=== PATIENT | female | born 1945 | race Caucasian/White ===

== ENCOUNTER 2017-01-23 09:05 | Outpatient (CLI) | payer MEDICARE, BC ==
[2017-01-23 09:31] LABS: #Basophils 0.1 thou/uL (0.0-0.2); #Eosinphils 0.1 thou/uL (0.0-0.7); #Lymphocytes 0.7 thou/uL (1.20-3.40); #Monocytes 0.4 thou/uL (0.11-0.59); #Neutrophils 2.3 thou/uL (1.40-6.50); %Basophils 2.7 % (0.0-1.0); %Eosinophils 1.8 % (0.0-10.0); %Lymphocytes 19.2 % (21.0-51.0); %Monocytes 11.1 % (0.0-10.0); %Neutrophils 65.2 % (42.0-75.0); Hemoglobin 14.6 g/dL (12.0-16.0); Mean Corpuscular HGB CONC 32.9 g/dL (32.0-36.0); Mean Corpuscular Hemoglobin 30.2 pg (27.0-31.0); Mean Corpuscular Volume 91.8 fl (81.0-99.0); Mean Platelet Volume 8.3 fL (7.4-10.4); Platelet Count 163 thou/uL (130-400); RBC Distribution Width 11.9 % (11.5-14.5); Red Blood Cell (RBC) Count 4.83 mill/uL (4.20-5.40); White Blood Cell (WBC) Count 3.5 thou/uL (4.8-10.8)
[2017-01-23 09:59] LABS: ALT (SGPT) 15 U/L (0-55); AST (SGOT) 23 U/L (5-34); Albumin 4.2 g/dL (3.4-4.8); Alkaline Phosphatase 103 U/L (40-150); Anion Gap 12 mmol/L (10-20); BUN (Urea Nitrogen) 9 mg/dL (9.8-20.1); Bilirubin, Direct 0.2 mg/dL (0.1-0.3); Bilirubin, Total 0.4 mg/dL (0.2-1.2); Calc. Creatinine Clearance 0 mL/min (70-130); Calcium 9.9 mg/dL (7.8-10.44); Carbon Dioxide 25 mmol/L (23-31); Cardiac Risk 2.7 (Less than 4.5); Chloride 103 mmol/L (98-107); Cholesterol 209 mg/dL (< 200 Desired); Estimated GFR-MDRD 81; Glucose 94 mg/dL (83-110); HDL Cholesterol 77 mg/dL (>60 Neg Risk); LDL Cholesterol, Calculated 114 mg/dL; Potassium 4.2 mmol/L (3.5-5.1); Protein, Total 6.9 g/dL (5.8-8.1); Sodium 136 mmol/L (136-145); Triglycerides 89 mg/dL (Less than 150)
== END 2017-01-23 09:06 | disposition home or self-care (01) ==
LOC: MADLABBHPM 09:05
PROVIDERS: ATTEND Family Medicine
DX: E87.1 Hypo-osmolality and hyponatremia (principal); I10 Essential (primary) hypertension
CPT/HCPCS: 36415; 80048; 80061; 80076; 84443; 85025

== ENCOUNTER 2017-04-24 08:33 | Outpatient (CLI) | payer MEDICARE, BC ==
[2017-04-24 09:08] LABS: %Basophils 2.3 % (0.0-1.0); %Eosinophils 2.7 % (0.0-10.0); %Lymphocytes 31.1 % (21.0-51.0); %Monocytes 13.4 % (0.0-10.0); %Neutrophils 50.5 % (42.0-75.0); Mean Corpuscular HGB CONC 32.6 g/dL (32.0-36.0); Mean Corpuscular Hemoglobin 29.7 pg (27.0-31.0); Mean Corpuscular Volume 91.3 fl (81.0-99.0); Mean Platelet Volume 7.6 fL (7.4-10.4); Platelet Count 154 thou/uL (130-400); RBC Distribution Width 11.9 % (11.5-14.5); White Blood Cell (WBC) Count 2.5 thou/uL (4.8-10.8)
[2017-04-24 09:09] LABS: ALT (SGPT) 14 U/L (8-55); AST (SGOT) 21 U/L (5-34); Alkaline Phosphatase 100 U/L (40-150); Anion Gap 12 mmol/L (10-20); BUN (Urea Nitrogen) 6 mg/dL (9.8-20.1); Bilirubin, Direct 0.2 mg/dL (0.1-0.3); Bilirubin, Total 0.5 mg/dL (0.2-1.2); Calc. Creatinine Clearance 0 mL/min (70-130); Calcium 9.9 mg/dL (7.8-10.44); Carbon Dioxide 27 mmol/L (23-31); Cardiac Risk 2.8 (Less than 4.5); Chloride 100 mmol/L (98-107); Cholesterol 210 mg/dl (< 200 Desired); Estimated GFR-MDRD 82; Glucose 91 mg/dL (83-110); HDL Cholesterol 75 mg/dL (>60 Neg Risk); LDL Cholesterol, Calculated 116 mg/dL; Potassium 4.4 mmol/L (3.5-5.1); Protein, Total 6.9 g/dL (6.0-8.3); Sodium 135 mmol/L (136-145); Triglycerides 95 mg/dL (Less than 150)
[2017-04-24 10:04] LABS: Eosinophils 2 % (0-10); Lymphocytes 25 % (21-51); Monocytes 14 % (0-10); Neutrophil 58 % (42-75)
[2017-04-24 10:05] LABS: PLT Morphology Comment Appears Adequate; RBC Morphology Normal
== END 2017-04-24 08:34 | disposition home or self-care (01) ==
LOC: MADLABBHPM 08:33
PROVIDERS: ATTEND Family Medicine
DX: L93.0 Discoid lupus erythematosus (principal); I10 Essential (primary) hypertension
CPT/HCPCS: 36415; 80048; 80061; 80076; 85025

== ENCOUNTER 2017-07-24 10:44 | Outpatient (CLI) | payer MEDICARE, BC ==
[2017-07-24 11:20] LABS: Hemoglobin 14.4 g/dL (12.0-16.0); Lymphocytes 23 % (21-51); MDiff Complete? YES; Mean Corpuscular HGB CONC 32.2 g/dL (32.0-36.0); Mean Corpuscular Hemoglobin 29.5 pg (27.0-31.0); Mean Corpuscular Volume 91.7 fl (81.0-99.0); Mean Platelet Volume 7.7 fL (7.4-10.4); Monocytes 13 % (0-10); Neutrophil 60 % (42-75); PLT Morphology Comment Appears Adequate; Platelet Count 136 thou/uL (130-400); RBC Distribution Width 11.9 % (11.5-14.5); Reactive Lymphocytes 4 % (0-10); Red Blood Cell (RBC) Count 4.88 mill/uL (4.20-5.40); White Blood Cell (WBC) Count 3.1 thou/uL (4.8-10.8)
[2017-07-24 12:19] LABS: ALT (SGPT) 22 U/L (8-55); AST (SGOT) 24 U/L (5-34); Albumin 4.2 g/dL (3.4-4.8); Alkaline Phosphatase 108 U/L (40-150); Anion Gap 11 mmol/L (10-20); BUN (Urea Nitrogen) 10 mg/dL (9.8-20.1); Bilirubin, Direct 0.3 mg/dL (0.1-0.3); Bilirubin, Total 0.6 mg/dL (0.2-1.2); Calc. Creatinine Clearance 0 mL/min (70-130); Carbon Dioxide 27 mmol/L (23-31); Cardiac Risk 2.3 (Less than 4.5); Chloride 100 mmol/L (98-107); Cholesterol 162 mg/dl (< 200 Desired); Estimated GFR-MDRD 81; Glucose 89 mg/dL (83-110); HDL Cholesterol 72 mg/dL (>60 Neg Risk); LDL Cholesterol, Calculated 79 mg/dL; Potassium 4.4 mmol/L (3.5-5.1); Protein, Total 7.2 g/dL (6.0-8.3); Sodium 134 mmol/L (136-145); Triglycerides 56 mg/dL (Less than 150)
== END 2017-07-24 10:45 | disposition home or self-care (01) ==
LOC: MADLABBHPM 10:44
PROVIDERS: ATTEND Family Medicine
DX: E78.00 Pure hypercholesterolemia, unspecified (principal); I10 Essential (primary) hypertension; E87.1 Hypo-osmolality and hyponatremia
CPT/HCPCS: 36415; 80048; 80061; 80076; 85025

== ENCOUNTER 2019-11-28 13:06 | Emergency (ER) | payer MEDICARE, BC ==
--- NOTE | 2019-11-28 14:28 | CT ---
CT head noncontrast HISTORY: Fall. Headache. COMPARISON: 12/05/2015. FINDINGS: There is no evidence of acute intracranial hemorrhage or infarct. Mild diffuse cortical atr ophy and chronic ischemic small vessel disease. There is no mass effect or shift of midline structures. Calcification in the arterial structures of the brain base. Visualized paranasal sinuses remain well aerated. IMPRESSION: Atherosclerosis. No acute intracranial abnormalities are demonstrated. Chronic-type findings are stable.
== END 2019-11-28 14:43 | disposition home or self-care (01) ==
LOC: MADERS 13:06
DX: S06.0X0A Concussion without loss of consciousness, initial encounter (principal); S16.1XXA Strain of muscle, fascia and tendon at neck level, initial encounter; I10 Essential (primary) hypertension; F17.210 Nicotine dependence, cigarettes, uncomplicated; Z79.899 Other long term (current) drug therapy; W18.09XA Striking against other object with subsequent fall, initial encounter
CPT/HCPCS: 70450

== ENCOUNTER 2021-10-24 11:26 | Emergency (ER) | payer MEDICARE, BC ==
[2021-10-24] MEDS ORDERED: Sodium Chloride 0.9% 1,000 ML ONE (12:44)
[2021-10-24 12:47] LABS: Hemoglobin 13.9 g/dL (12.0-16.0); Mean Corpuscular HGB CONC 32.3 g/dL (32.0-36.0); Mean Corpuscular Hemoglobin 28.8 pg (27.0-31.0); Mean Corpuscular Volume 89.2 fL (78.0-98.0); Mean Platelet Volume 6.3 fL (7.4-10.4); Platelet Count 227 thou/uL (130-400); RBC Distribution Width 10.7 % (11.5-14.5); Red Blood Cell (RBC) Count 4.83 mill/uL (4.20-5.40); White Blood Cell (WBC) Count 7.7 thou/uL (4.8-10.8)
[2021-10-24 12:54] LABS: MDiff Complete? YES
[2021-10-24 12:55] LABS: Base Excess-Venous 2.6 mmol/L (-2.0 to 3.0); Bicarbonate (HCO3v) 26.9 mmol/L (22.0-28.0); CO2 Tension (PvCO2) 39.6 mmHg (42.0-51.0); Calcium, Ionized 1.31 mmol/L (1.15-1.33); Chloride 92 mmol/L (98-107); Hemoglobin - Calc 15.8 g/dL (12.0-16.0); Potassium 4.3 mmol/L (3.5-5.1); Sodium 129 mmol/L (138-145); T. Carbon Dioxide 28.1 mmol/L (22.0-28.0); vO2 Saturation-calc 92.6 % (60.0-85.0)
[2021-10-24 12:57] LABS: Band 8 % (5-11); Neutrophil 82 % (42-75)
[2021-10-24 12:58] LABS: Eosinophils 1 % (0-10); Lymphocytes 7 % (21-51); Monocytes 5 % (0-10)
[2021-10-24 12:59] LABS: Platelet Morphology Comment Appears Adequate
[2021-10-24 13:02] LABS: ALT (SGPT) 29 U/L (8-55); AST (SGOT) 30 U/L (5-34); Albumin 3.7 g/dL (3.4-4.8); Alkaline Phosphatase 101 U/L (40-110); Anion Gap 16 mmol/L (10-20); BUN (Urea Nitrogen) 14 mg/dL (9.8-20.1); Bilirubin, Total 0.6 mg/dL (0.2-1.2); Calc. Creatinine Clearance 0 mL/min (70-130); Calcium 10.9 mg/dL (7.8-10.44); Carbon Dioxide 24 mmol/L (23-31); Chloride 93 mmol/L (98-107); Globulin 3.7 g/dL (2.4-3.5); Glucose 118 mg/dL (83-110); Potassium 4.2 mmol/L (3.5-5.1); Protein, Total 7.4 g/dL (5.8-8.1); Sodium 129 mmol/L (136-145)
[2021-10-24 14:55] LABS: Bilirubin Small (Negative); Blood, Urine Negative (Negative); Glucose, Urine (Dipstick) Negative (Negative); Ketone, Urine > or equal to 80 mg/dL (Negative); Leukocyte Negative (Negative); Nitrite Negative (Negative); Protein, Urine (Dipstick) 30 mg/dL (Neg-Trace)
[2021-10-24 15:15] LABS: Clarity Hazy (Clear)
[2021-10-24 15:16] LABS: Bacteria/HPF 1+ HPF (None Seen); RBC/HPF 0-3 HPF (0-3); WBC/HPF 0-3 HPF (0-3)
[2021-10-24] MEDS ORDERED: predniSONE 20 MG TAB ONE (15:51)
== END 2021-10-24 16:10 | disposition home or self-care (01) ==
LOC: MADERS 11:26
DX: J22 Unspecified acute lower respiratory infection (principal); J44.9 Chronic obstructive pulmonary disease, unspecified; I10 Essential (primary) hypertension; F17.210 Nicotine dependence, cigarettes, uncomplicated
CPT/HCPCS: 71045; 80053; 81003; 81015; 82330; 82803; 83880; 84484; 85025; 93005; J7050; J7512; J7620

== ENCOUNTER 2021-12-26 12:43 | Emergency (ER) | payer OTHER, MEDICARE, BC ==
[2021-12-26] MEDS ORDERED: Acetaminophen 325 MG TAB ONE (14:58)
== END 2021-12-26 16:21 | disposition home or self-care (01) ==
LOC: MADERS 12:43
DX: S42.211A Unspecified displaced fracture of surgical neck of right humerus, initial encounter for closed fracture (principal); S42.031A Displaced fracture of lateral end of right clavicle, initial encounter for closed fracture; S83.91XA Sprain of unspecified site of right knee, initial encounter; S00.83XA Contusion of other part of head, initial encounter; I10 Essential (primary) hypertension; M32.9 Systemic lupus erythematosus, unspecified; J44.9 Chronic obstructive pulmonary disease, unspecified; F17.210 Nicotine dependence, cigarettes, uncomplicated; W01.198A Fall on same level from slipping, tripping and stumbling with subsequent striking against other object, initial encounter; Y92.240 Courthouse as the place of occurrence of the external cause
CPT/HCPCS: 70450; 72125

== ENCOUNTER 2023-02-13 11:29 | Outpatient (CLI) | payer MEDICARE, BC | END 2023-02-13 11:30 | disposition home or self-care (01) | LOC: MADRAD 11:29 | PROVIDERS: ATTEND Internal Medicine | DX: J44.9 Chronic obstructive pulmonary disease, unspecified (principal) | CPT/HCPCS: 71046 ==